=== PATIENT | female | born 1995 | race Caucasian/White ===

== ENCOUNTER 2017-01-08 09:54 | Emergency (ER) | payer MEDICAID, OTHER ==
[~2017-01-08] VITALS: Ht 175.3 cm; Wt 90.7 kg
[2017-01-08 09:54] VITALS: BP_SYST 93
[2017-01-08] MEDS ORDERED: IPRATROPIUM NEB FS 0.5 MG/2.5 ML AMPUL.NEB ONE (10:49)
[2017-01-08] MEDS ORDERED: ALBUTEROL FS 2.5 MG/3 ML VIAL.NEB ONE (10:49)
[2017-01-08] MEDS ORDERED: ALBUTEROL FS 2.5 MG/3 ML VIAL.NEB NEB ONE (11:00)
[2017-01-08] MEDS ORDERED: predniSONE 20 MG TABLET PO ONE (11:00)
[2017-01-08] MEDS ORDERED: IPRATROPIUM NEB FS 0.5 MG/2.5 ML AMPUL.NEB NEB ONE (11:00)
[2017-01-08] MEDS ORDERED: predniSONE 20 MG TABLET ONE (11:07)
== END 2017-01-08 11:35 | disposition home or self-care (01) ==
LOC: ER 09:56
DX: J45.909 Unspecified asthma, uncomplicated (principal); J06.9 Acute upper respiratory infection, unspecified
CPT/HCPCS: 94640 ×2; 99284; A4606; J7512; Z7610

== ENCOUNTER → 2022-10-19 | Emergency (ER) | payer OTHER ==
[~2022-10-19] VITALS: Ht 172.7 cm; Wt 99.8 kg
[~2022-10-19] MED LIST: SODI45SP6 NS
[2022-10-19 17:03] VITALS: BP 132/74; TEMP 97.8; O2SAT 95
== END | disposition home or self-care (01) ==
LOC: ER 15:36
DX: U07.1 COVID-19 (principal); Z79.899 Other long term (current) drug therapy
CPT/HCPCS: 99284; 71045; 87426; 87804 ×2; C9803